=== PATIENT | male | born 1945 | race Caucasian/White ===

== ENCOUNTER 2017-09-05 09:51 | Emergency (ER) | payer OTHER ==
[~2017-09-05] VITALS: Ht 185.4 cm; Wt 86.2 kg
[~2017-09-05 09:51] MED LIST: ALBUAER3 IN; AMIO200T33 PO; ASPI81TA27 PO; ATOR20TA50 PO; BUSP5TAB51 PO; CARV6.25 PO; COMIH IN; ENAL5TAB92 PO; FLUT250M2 INH; FURO40TA4 PO; IPRIH IN; POT10T PO
[2017-09-05] MEDS ORDERED: IPRATROPIUM BROM 0.5 MG/2.5ML INH SOL NEB ONE (10:15)
[2017-09-05] MEDS ORDERED: ALBUTEROL SULF 2.5 MG/0.5ML(0.5%) NEB SOLN NEB ONE (10:15)
[2017-09-05 10:36] LABS: Basophils # (auto) 0.1 uL; Basophils % (auto) 1.1 % (0.0-2.0); Eosinophils # (auto) 0.2 uL; Eosinophils % (auto) 2.6 % (0.0-7.0); Hematocrit 42.9 % (41.0-53.0); Hemoglobin 14.5 g/dL (13.5-17.5); Lymphocytes % (auto) 11.5 % (10.0-50.0); Mean Corpuscular Hemoglobin 31.8 pg (28.0-32.0); Mean Corpuscular Hgb Conc. 33.9 g/dL (32.0-36.0); Mean Corpuscular Volume 93.8 fL (80.0-100.0); Mean Platelet Volume 7.5 fL (6.9-10.8); Monocytes # (auto) 0.8 uL; Monocytes % (auto) 9.3 % (0.0-12.0); Neutrophils # (auto) 6.5 uL; Neutrophils % (auto) 75.5 % (37.0-80.0); Platelet Count (auto) 249 10^3/uL (140-450); Red Cell Distribution Width 15.3 % (11.8-14.3); White Blood Cell 8.7 10^3/uL (4.4-10.8)
[2017-09-05 11:04] LABS: Albumin 3.7 g/dL (3.4-5.0); BUN/Creatinine Ratio 11.3; Bilirubin, Total 0.7 mg/dL (0.2-1.0); Calcium 8.6 mg/dL (8.5-10.1); Magnesium 2.5 mg/dL (1.6-2.6); Potassium 3.9 mmol/L (3.5-5.1); Total Protein 7.1 g/dL (6.4-8.2)
[2017-09-05 11:18] LABS: B-Type Natriuretic Peptide 28.05 pg/mL (0-100)
[2017-09-05 11:30] LABS: Temperature: 23.5 C (20.0-25.0)
[2017-09-05] MEDS ORDERED: FUROSEMIDE 40 MG/4 ML VIAL IV ONE (13:00)
[2017-09-05 13:12] VITALS: BP 151/105
[2017-09-05 14:01] LABS: Urine RBC None Seen /hpf (0 - 3)
[2017-09-05 14:10] LABS: Urine Bilirubin Negative (Negative); Urine Blood Negative /uL (Negative); Urine Color Yellow (Yellow); Urine Glucose Normal (Normal); Urine Hyaline Cast FEW /lpf (0 - 2); Urine Ketone Negative (Negative); Urine Nitrite Negative (Negative); Urine Urobilinogen Normal (Negative); Urine pH 5.5 (5.0-8.0)
== END 2017-09-05 14:54 | disposition home or self-care (01) ==
LOC: EDBD 09:51 → ER 09:51
DX: I50.9 Heart failure, unspecified (principal); J44.9 Chronic obstructive pulmonary disease, unspecified
CPT/HCPCS: 36415; 71010; 80053; 81001; 83735; 83880; 84484; 85025; 93005; 94640; 94761; 96374; 99285; J1940

== ENCOUNTER 2017-10-19 02:08 | Emergency (ER) | payer OTHER ==
[~2017-10-19] VITALS: Ht 180.3 cm; Wt 79.4 kg
[2017-10-19 03:08] LABS: Basophils # (auto) 0.1 uL; Basophils % (auto) 0.9 % (0.0-2.0); Eosinophils # (auto) 0.1 uL; Eosinophils % (auto) 1.4 % (0.0-7.0); Hematocrit 43.1 % (41.0-53.0); Hemoglobin 14.7 g/dL (13.5-17.5); Lymphocytes % (auto) 9.8 % (10.0-50.0); Mean Corpuscular Hemoglobin 32.5 pg (28.0-32.0); Mean Corpuscular Volume 95.6 fL (80.0-100.0); Monocytes # (auto) 0.8 uL; Monocytes % (auto) 7.9 % (0.0-12.0); Neutrophils # (auto) 8.1 uL; Nucleated Red Blood Cells % 0.1 %; Platelet Count (auto) 203 10^3/uL (140-450); Red Blood Cells 4.51 10^6/uL (4.5-5.90); Red Cell Distribution Width 15.3 % (11.8-14.3); White Blood Cell 10.2 10^3/uL (4.4-10.8)
[2017-10-19 03:17] LABS: INR 0.93 (0.9-1.15); Partial Thromboplastin Time 23.2 sec (22.64-33.71); Prothrombin Time 10.1 sec (9.37-12.3)
[2017-10-19 03:52] LABS: Alkaline Phosphatase 107 U/L (45-117); Anion Gap 6 (5-15); BUN/Creatinine Ratio 16.1; Blood Urea Nitrogen 36 mg/dL (7-18); Carbon Dioxide 31 mmol/L (21-32); Chloride 105 mmol/L (98-107); GFR African American 37 mL/min; GFR Non-African American 31 mL/min; Glucose 116 mg/dL (74-106); Potassium 3.7 mmol/L (3.5-5.1); Sodium 142 mmol/L (136-145)
[2017-10-19 03:53] LABS: Alanine Aminotransferase 20 U/L (16-61); Albumin 3.6 g/dL (3.4-5.0); Aspartate Aminotransferase 16 U/L (15-37); Bilirubin, Total 0.7 mg/dL (0.2-1.0); Calcium 8.5 mg/dL (8.5-10.1); Magnesium 2.5 mg/dL (1.6-2.6); Total Protein 6.9 g/dL (6.4-8.2)
[2017-10-19 04:54] LABS: Urine Bacteria NONE SEEN /hpf (None Seen); Urine Blood Negative /uL (Negative); Urine Mucus FEW (None Seen); Urine Specific Gravity 1.026 (1.001-1.035); Urine WBC 1 /hpf (0 - 3)
[2017-10-19] MEDS ORDERED: HYDROcodone-ACET 10/325MG TAB ONE (05:57)
[2017-10-19] MEDS ORDERED: HYDROcodone-ACET 10/325MG TAB PO ONE (06:00)
[2017-10-19 06:32] VITALS: BP 156/94
== END 2017-10-19 06:52 | disposition home or self-care (01) ==
LOC: EDBD 02:08 → ER 02:19
DX: J44.1 Chronic obstructive pulmonary disease with (acute) exacerbation (principal); N17.9 Acute kidney failure, unspecified; I50.9 Heart failure, unspecified; R73.9 Hyperglycemia, unspecified; Z99.81 Dependence on supplemental oxygen
CPT/HCPCS: 36415; 36600; 71045; 80053; 81001; 82805; 83735; 83880; 84484; 85025; 85379; 85610; 85730; 93005

== ENCOUNTER 2018-02-11 21:53 | Inpatient (IN) | payer OTHER ==
[~2018-02-11] VITALS: Ht 190.5 cm; Wt 56.8 kg
[~2018-02-11 21:53] MED LIST changes: -ASPI81TA27 PO; +BUSP10TA90 PO; -BUSP5TAB51 PO; -COMIH IN; -ENAL5TAB92 PO; -FLUT250M2 INH; -IPRIH IN; -POT10T PO
[2018-02-11] MEDS ORDERED: FUROSEMIDE 40 MG/4 ML VIAL IV ONE (22:15)
[2018-02-11] MEDS ORDERED: methylPREDNISolone SOD SUCC 125 MG/2 ML VL IV ONE (22:15)
[2018-02-11 22:37] LABS: Hemoglobin 13.7 g/dL (13.5-17.5); Mean Corpuscular Hemoglobin 32.3 pg (28.0-32.0); Mean Corpuscular Hgb Conc. 33.6 g/dL (32.0-36.0); White Blood Cell 10.5 10^3/uL (4.4-10.8)
[2018-02-11 22:44] LABS: Mean Corpuscular Volume 96.2 fL (80.0-100.0); Platelet Count (auto) 175 10^3/uL (140-450); Red Blood Cells 4.26 10^6/uL (4.5-5.90); Red Cell Distribution Width 15.1 % (11.8-14.3)
[2018-02-11 22:53] LABS: Band Neutrophils % (manual) 0; Basophils % (manual) 0 (0.0-2.0); Blast Cells 0; Eosinophils % (manual) 0 (0-7); Metamyelocytes % 0; Myelocytes % 0; Promyelocytes % 0; Reactive Lymphocytes 0
[2018-02-11 22:55] LABS: Albumin 3.1 g/dL (3.4-5.0); BUN/Creatinine Ratio 21.1; Calcium 8.2 mg/dL (8.5-10.1); Potassium 4.1 mmol/L (3.5-5.1)
[2018-02-11 23:00] LABS: Bilirubin, Total 0.8 mg/dL (0.2-1.0); Total Protein 6.3 g/dL (6.4-8.2)
[2018-02-11 23:23] LABS: Lymphocytes % (manual) 3 (10.0-50.0); Monocytes % (manual) 4 (0-12)
[2018-02-12] MEDS ORDERED: IBUPROFEN 800 MG TAB PO ONE (02:00)
[2018-02-12] MEDS ORDERED: TEMAZEPAM 15 MG CAP PO PRN (02:15)
[2018-02-12] MEDS ORDERED: ONDANSETRON HCL 4 MG/2 ML VIAL IV PRN (02:15)
[2018-02-12] MEDS ORDERED: ACETAMINOPHEN 500 MG TAB PO PRN (02:15)
[2018-02-12 03:14] VITALS: BP 110/73
[2018-02-12] MEDS ORDERED: FUROSEMIDE 20 MG TAB PO SCH (06:00)
[2018-02-12] MEDS: ALBUTEROL SULF 2.5 MG/0.5ML(0.5%) NEB SOLN NEB SCH ×3 (06:50→19:16)
[2018-02-12] MEDS: IPRATROPIUM BROM 0.5 MG/2.5ML INH SOL NEB SCH ×3 (06:50→19:16)
[2018-02-12 07:16] LABS: Urine Bacteria FEW /hpf (None Seen); Urine Blood Negative /uL (Negative); Urine Mucus FEW (None Seen); Urine Specific Gravity 1.023 (1.001-1.035); Urine WBC 2 /hpf (0 - 3)
[2018-02-12] MEDS: CARVEDILOL 3.125 MG TAB PO SCH ×2 (09:52→21:36)
[2018-02-12] MEDS: busPIRone HCL 10 MG TAB PO SCH ×2 (09:52→21:33)
[2018-02-12] MEDS: AMIODARONE HCL 200 MG TAB PO SCH (09:52)
[2018-02-12] MEDS: HYDROcodone-ACET 5/325MG TAB PO PRN (12:41)
[2018-02-12 12:45] LABS: Basophils # (auto) 0.1 uL; Basophils % (auto) 0.9 % (0.0-2.0); Eosinophils # (auto) 0 uL; Hematocrit 38.1 % (41.0-53.0); Hemoglobin 12.6 g/dL (13.5-17.5); Lymphocytes # (auto) 0.3 uL; Lymphocytes % (auto) 2.3 % (10.0-50.0); Mean Corpuscular Hemoglobin 31.5 pg (28.0-32.0); Mean Corpuscular Hgb Conc. 32.9 g/dL (32.0-36.0); Mean Corpuscular Volume 95.6 fL (80.0-100.0); Monocytes # (auto) 0.2 uL; Monocytes % (auto) 1.5 % (0.0-12.0); Neutrophils # (auto) 12.3 uL; Neutrophils % (auto) 95.3 % (37.0-80.0); Platelet Count (auto) 159 10^3/uL (140-450); Red Blood Cells 3.99 10^6/uL (4.5-5.90); Red Cell Distribution Width 14.6 % (11.8-14.3); White Blood Cell 12.9 10^3/uL (4.4-10.8)
[2018-02-12 13:05] VITALS: BP 119/79
[2018-02-12 13:05] LABS: BUN/Creatinine Ratio 20.8; Potassium 3.8 mmol/L (3.5-5.1)
[2018-02-12 17:00] VITALS: BP 132/82
[2018-02-12] MEDS: methylPREDNISolone SOD SUCC 40 MG/ML VL IV SCH ×2 (17:32→21:33)
[2018-02-12 22:00] VITALS: BP 116/68
[2018-02-13] MEDS: ALBUTEROL SULF 2.5 MG/0.5ML(0.5%) NEB SOLN NEB SCH ×5 (00:17→23:39)
[2018-02-13] MEDS: IPRATROPIUM BROM 0.5 MG/2.5ML INH SOL NEB SCH ×5 (00:17→23:39)
[2018-02-13] MEDS: methylPREDNISolone SOD SUCC 40 MG/ML VL IV SCH ×3 (04:49→21:46)
[2018-02-13] MEDS: HYDROcodone-ACET 5/325MG TAB PO PRN (04:50)
[2018-02-13 05:00] VITALS: BP 132/93
[2018-02-13 06:55] LABS: Basophils # (auto) 0.1 uL; Basophils % (auto) 0.3 % (0.0-2.0); Eosinophils # (auto) 0 uL; Hematocrit 39.3 % (41.0-53.0); Hemoglobin 13.3 g/dL (13.5-17.5); Lymphocytes # (auto) 0.3 uL; Lymphocytes % (auto) 1.8 % (10.0-50.0); Mean Corpuscular Hemoglobin 32.2 pg (28.0-32.0); Mean Corpuscular Hgb Conc. 33.8 g/dL (32.0-36.0); Mean Corpuscular Volume 95.4 fL (80.0-100.0); Monocytes # (auto) 0.3 uL; Monocytes % (auto) 1.7 % (0.0-12.0); Neutrophils # (auto) 16.7 uL; Neutrophils % (auto) 96.2 % (37.0-80.0); Platelet Count (auto) 154 10^3/uL (140-450); Red Blood Cells 4.11 10^6/uL (4.5-5.90); Red Cell Distribution Width 14.7 % (11.8-14.3); White Blood Cell 17.4 10^3/uL (4.4-10.8)
[2018-02-13 06:59] LABS: BUN/Creatinine Ratio 20.4; Calcium 8.1 mg/dL (8.5-10.1); Magnesium 2.5 mg/dL (1.6-2.6); Potassium 4.1 mmol/L (3.5-5.1)
[2018-02-13 09:00] VITALS: BP 126/86
[2018-02-13] MEDS: CARVEDILOL 3.125 MG TAB PO SCH ×2 (09:51→21:46)
[2018-02-13] MEDS: AMIODARONE HCL 200 MG TAB PO SCH (09:51)
[2018-02-13] MEDS: busPIRone HCL 10 MG TAB PO SCH ×2 (09:51→21:46)
[2018-02-13 13:17] VITALS: BP 121/88
[2018-02-13] MEDS: DOXYCYCLINE 100 MG TAB/CAP PO SCH ×2 (13:52→21:46)
[2018-02-13 17:13] VITALS: BP 134/95
[2018-02-13] MEDS: CYANOCOBALAMIN (B-12) 1000 MCG/1 ML VIAL SUBCUT SCH (18:18)
[2018-02-13 21:30] VITALS: BP 129/83
[2018-02-14 05:00] VITALS: BP 109/71
[2018-02-14] MEDS: methylPREDNISolone SOD SUCC 40 MG/ML VL IV SCH ×2 (05:36→13:58)
[2018-02-14] MEDS: IPRATROPIUM BROM 0.5 MG/2.5ML INH SOL NEB SCH ×2 (06:11→11:27)
[2018-02-14] MEDS: ALBUTEROL SULF 2.5 MG/0.5ML(0.5%) NEB SOLN NEB SCH ×2 (06:11→11:27)
[2018-02-14 09:00] VITALS: BP 129/87
[2018-02-14] MEDS: CYANOCOBALAMIN (B-12) 1000 MCG/1 ML VIAL SUBCUT SCH (11:38)
[2018-02-14] MEDS: CARVEDILOL 3.125 MG TAB PO SCH (11:42)
[2018-02-14] MEDS: busPIRone HCL 10 MG TAB PO SCH (11:42)
[2018-02-14] MEDS: DOXYCYCLINE 100 MG TAB/CAP PO SCH (11:43)
[2018-02-14 13:00] VITALS: BP 131/82
[2018-02-14] MEDS ORDERED: MULTIPLE VITAMINS W/ MINERALS TAB PO SCH (15:37)
[2018-02-14 16:57] VITALS: BP 141/93
[2018-02-14 17:00] VITALS: BP 141/93
[2018-02-14 17:50] VITALS: BP 141/93
[2018-02-14] MEDS ORDERED: BOOST PLUS 8 ounce PO SCH (18:00)
[2018-02-14] MEDS ORDERED: ASCORBIC ACID 500 MG TAB PO SCH (22:00)
[2018-03-25] MEDS ORDERED: GLIP-115 PO (11:49)
[2018-03-25] MEDS ORDERED: CEL100T PO (11:51)
[2018-03-29] MEDS ORDERED: FURO20TA PO (12:13)
== END 2018-02-14 17:50 | DRG 682 ==
LOC: EDBD 21:53 → ER 21:54 → TELE 21:55 → TELE-EAST 02-12 13:15
PROVIDERS: ADMIT Nurse Practitioner Family; ATTEND Internal Medicine
DX: N17.0 Acute kidney failure with tubular necrosis (principal); J96.00 Acute respiratory failure, unspecified whether with hypoxia or hypercapnia; I48.91 Unspecified atrial fibrillation; J44.0 Chronic obstructive pulmonary disease with (acute) lower respiratory infection; I13.0 Hypertensive heart and chronic kidney disease with heart failure and stage 1 through stage 4 chronic kidney disease, or unspecified chronic kidney disease; I50.9 Heart failure, unspecified; I48.92 Unspecified atrial flutter; J45.901 Unspecified asthma with (acute) exacerbation; J44.1 Chronic obstructive pulmonary disease with (acute) exacerbation; N18.4 Chronic kidney disease, stage 4 (severe); W18.39XA Other fall on same level, initial encounter; J20.9 Acute bronchitis, unspecified; R29.6 Repeated falls; R73.9 Hyperglycemia, unspecified; E78.5 Hyperlipidemia, unspecified; E53.8 Deficiency of other specified B group vitamins; F41.9 Anxiety disorder, unspecified; I25.2 Old myocardial infarction; Z81.8 Family history of other mental and behavioral disorders; Z82.3 Family history of stroke; Z82.49 Family history of ischemic heart disease and other diseases of the circulatory system; Z82.5 Family history of asthma and other chronic lower respiratory diseases; Z82.62 Family history of osteoporosis; Z99.81 Dependence on supplemental oxygen; Z79.899 Other long term (current) drug therapy; Y93.89 Activity, other specified; Y92.89 Other specified places as the place of occurrence of the external cause; Y99.8 Other external cause status
CPT/HCPCS: 36415; 36600; 70450; 71045; 73630; 80048; 80053; 81001; 82607; 82805; 83605; 83735; 83880; 84484; 85007; 85025; 85027; 87040; 87081; 93005; 93306; 93886; 94640; 94761; 96374; 96375; 97116

== ENCOUNTER 2018-02-16 16:27 | Inpatient (IN) | payer OTHER ==
[~2018-02-16] VITALS: Ht 185.4 cm; Wt 77.6 kg
[2018-02-16] MEDS ORDERED: IPRATROPIUM BROM 0.5 MG/2.5ML INH SOL NEB ONE (20:00)
[2018-02-16] MEDS ORDERED: ALBUTEROL SULF 2.5 MG/0.5ML(0.5%) NEB SOLN NEB ONE (20:00)
[2018-02-16] MEDS ORDERED: cefTRIAXone 1GM/10ml IVPUSH 10 ML IV ONE (20:15)
[2018-02-16] MEDS ORDERED: methylPREDNISolone SOD SUCC 125 MG/2 ML VL IV ONE (20:15)
[2018-02-16 20:43] LABS: Basophils # (auto) 0.1 uL; Eosinophils # (auto) 0.2 uL; Eosinophils % (auto) 1.6 % (0.0-7.0); Hematocrit 40.8 % (41.0-53.0); Hemoglobin 13.7 g/dL (13.5-17.5); Lymphocytes # (auto) 0.6 uL; Lymphocytes % (auto) 5.8 % (10.0-50.0); Mean Corpuscular Hemoglobin 32.1 pg (28.0-32.0); Mean Corpuscular Hgb Conc. 33.6 g/dL (32.0-36.0); Mean Corpuscular Volume 95.5 fL (80.0-100.0); Monocytes # (auto) 0.6 uL; Monocytes % (auto) 6.3 % (0.0-12.0); Neutrophils # (auto) 8.6 uL; Neutrophils % (auto) 85.3 % (37.0-80.0); Platelet Count (auto) 142 10^3/uL (140-450); Red Blood Cells 4.27 10^6/uL (4.5-5.90)
[2018-02-16 20:59] LABS: Albumin 2.8 g/dL (3.4-5.0); Calcium 8.4 mg/dL (8.5-10.1); Potassium 3.9 mmol/L (3.5-5.1)
[2018-02-16 21:01] LABS: BUN/Creatinine Ratio 23.9
[2018-02-16 21:05] LABS: Bilirubin, Total 0.8 mg/dL (0.2-1.0); Total Protein 5.9 g/dL (6.4-8.2)
[2018-02-16] MEDS ORDERED: NITROGLYCERIN 0.4 MG SL TAB SL PRN (21:15)
[2018-02-16] MEDS ORDERED: MORPHINE SULFATE 4 MG/ML SYR/VIAL IV PRN (21:15)
[2018-02-16] MEDS ORDERED: ONDANSETRON HCL 4 MG/2 ML VIAL IV PRN (21:15)
[2018-02-16] MEDS ORDERED: HYDROcodone-ACET 5/325MG TAB PO PRN (21:15)
[2018-02-16] MEDS ORDERED: ACETAMINOPHEN 325 MG TAB PO PRN (21:15)
[2018-02-16 21:41] VITALS: BP 135/97
[2018-02-16] MEDS: CARVEDILOL 3.125 MG TAB PO SCH (22:04)
[2018-02-16] MEDS: ATORVASTATIN 20 MG TAB PO SCH (22:04)
[2018-02-16] MEDS: busPIRone HCL 10 MG TAB PO SCH (22:05)
[2018-02-16] MEDS: IPRATROPIUM BROM 0.5 MG/2.5ML INH SOL NEB PRN (22:42)
[2018-02-16] MEDS: ALBUTEROL SULF 2.5 MG/0.5ML(0.5%) NEB SOLN NEB PRN (22:42)
[2018-02-16 23:41] VITALS: BP 147/96
[2018-02-17] MEDS ORDERED: POTA10TA51 PO (00:39)
[2018-02-17] MEDS ORDERED: BUSP10TA90 PO (00:39)
[2018-02-17] MEDS ORDERED: AMLO5TAB2 PO (00:39)
[2018-02-17] MEDS ORDERED: CAR3125T PO (00:39)
[2018-02-17] MEDS ORDERED: FURO20TA PO (00:39)
[2018-02-17] MEDS ORDERED: PRED1PAK7 PO (00:39)
[2018-02-17] MEDS: ALBUTEROL SULF 2.5 MG/0.5ML(0.5%) NEB SOLN NEB PRN ×3 (03:02→11:05)
[2018-02-17] MEDS: IPRATROPIUM BROM 0.5 MG/2.5ML INH SOL NEB PRN ×3 (03:02→11:05)
[2018-02-17 05:00] VITALS: BP 140/95
[2018-02-17] MEDS: FUROSEMIDE 20 MG TAB PO SCH ×2 (06:20→17:49)
[2018-02-17 06:33] LABS: Basophils # (auto) 0 uL; Basophils % (auto) 0.1 % (0.0-2.0); Eosinophils # (auto) 0 uL; Hematocrit 36.9 % (41.0-53.0); Hemoglobin 12.5 g/dL (13.5-17.5); Lymphocytes # (auto) 0.2 uL; Lymphocytes % (auto) 2.3 % (10.0-50.0); Mean Corpuscular Hemoglobin 32.2 pg (28.0-32.0); Mean Corpuscular Hgb Conc. 33.9 g/dL (32.0-36.0); Mean Corpuscular Volume 94.9 fL (80.0-100.0); Monocytes # (auto) 0.1 uL; Neutrophils # (auto) 8.7 uL; Neutrophils % (auto) 96.6 % (37.0-80.0); Nucleated Red Blood Cells % 0.1 %; Platelet Count (auto) 140 10^3/uL (140-450); Red Blood Cells 3.89 10^6/uL (4.5-5.90); Red Cell Distribution Width 14.9 % (11.8-14.3)
[2018-02-17 07:15] LABS: Albumin 2.4 g/dL (3.4-5.0); BUN/Creatinine Ratio 23.2; Bilirubin, Total 0.3 mg/dL (0.2-1.0); Calcium 8.3 mg/dL (8.5-10.1); Total Protein 5.3 g/dL (6.4-8.2)
[2018-02-17 07:36] LABS: Potassium 4.2 mmol/L (3.5-5.1)
[2018-02-17 08:00] VITALS: BP 142/99
[2018-02-17 09:00] VITALS: BP 142/99
[2018-02-17] MEDS: cefTRIAXone 1GM/10ml IVPUSH 10 ML IV SCH (10:18)
[2018-02-17] MEDS: busPIRone HCL 10 MG TAB PO SCH ×2 (10:19→21:45)
[2018-02-17] MEDS: ENOXAPARIN SOD 40 MG/0.4 ML SYRINGE SC SCH (10:19)
[2018-02-17] MEDS: PANTOPRAZOLE 40 MG TAB PO SCH (10:19)
[2018-02-17] MEDS: AMIODARONE HCL 200 MG TAB PO SCH (10:19)
[2018-02-17] MEDS: CARVEDILOL 3.125 MG TAB PO SCH ×2 (11:06→21:45)
[2018-02-17 13:00] VITALS: BP 119/86
[2018-02-17 17:00] VITALS: BP 140/82
[2018-02-17] MEDS ORDERED: ACETYLCYSTEINE 10 %(100MG/ML) SOL 4ML NEB SCH (18:00)
[2018-02-17] MEDS: ACETYLCYSTEINE 10 %(100MG/ML) SOL 4ML NEB SCH (18:45)
[2018-02-17] MEDS: IPRATROPIUM BROM 0.5 MG/2.5ML INH SOL NEB SCH (18:46)
[2018-02-17] MEDS: ALBUTEROL SULF 2.5 MG/0.5ML(0.5%) NEB SOLN NEB SCH (18:46)
[2018-02-17] MEDS: BOOST PLUS 8 ounce PO SCH (19:48)
[2018-02-17] MEDS: TEMAZEPAM 15 MG CAP PO PRN (21:44)
[2018-02-17] MEDS: ATORVASTATIN 20 MG TAB PO SCH (21:45)
[2018-02-17 22:53] VITALS: BP 116/68
[2018-02-18] MEDS: ALBUTEROL SULF 2.5 MG/0.5ML(0.5%) NEB SOLN NEB SCH ×5 (00:03→21:12)
[2018-02-18] MEDS: IPRATROPIUM BROM 0.5 MG/2.5ML INH SOL NEB SCH ×5 (00:03→21:12)
[2018-02-18] MEDS: ACETYLCYSTEINE 10 %(100MG/ML) SOL 4ML NEB SCH ×4 (00:04→21:13)
[2018-02-18] MEDS: FUROSEMIDE 20 MG TAB PO SCH ×2 (05:33→17:57)
[2018-02-18 05:50] VITALS: BP 128/85
[2018-02-18 08:00] VITALS: BP 135/75
[2018-02-18 09:00] VITALS: BP 135/75
[2018-02-18] MEDS: cefTRIAXone 1GM/10ml IVPUSH 10 ML IV SCH (09:02)
[2018-02-18] MEDS: BOOST PLUS 8 ounce PO SCH ×2 (09:03→17:57)
[2018-02-18] MEDS: busPIRone HCL 10 MG TAB PO SCH ×2 (09:39→21:36)
[2018-02-18] MEDS: AMIODARONE HCL 200 MG TAB PO SCH (09:39)
[2018-02-18] MEDS: PANTOPRAZOLE 40 MG TAB PO SCH (09:39)
[2018-02-18] MEDS: CARVEDILOL 3.125 MG TAB PO SCH ×2 (09:40→21:36)
[2018-02-18] MEDS: ENOXAPARIN SOD 40 MG/0.4 ML SYRINGE SC SCH (09:40)
[2018-02-18 13:00] VITALS: BP 117/65
[2018-02-18 16:59] VITALS: BP 114/79
[2018-02-18] MEDS ORDERED: LIDOCAINE 5% TOPICAL PATCH TOP ONE (17:45)
[2018-02-18] MEDS: SODIUM CHLORIDE 0.9% 1,000 ML IV SCH (17:58)
[2018-02-18] MEDS: ATORVASTATIN 20 MG TAB PO SCH (21:35)
[2018-02-18] MEDS: CELECOXIB 100 MG CAP PO SCH (21:35)
[2018-02-18 23:53] VITALS: BP 132/81
[2018-02-19] VITALS (7 sets, daily range): BP systolic 119–143; BP diastolic 61–87
[2018-02-19] MEDS: ACETYLCYSTEINE 10 %(100MG/ML) SOL 4ML NEB SCH ×4 (00:15→18:20)
[2018-02-19] MEDS: ALBUTEROL SULF 2.5 MG/0.5ML(0.5%) NEB SOLN NEB SCH ×4 (00:15→18:20)
[2018-02-19] MEDS: IPRATROPIUM BROM 0.5 MG/2.5ML INH SOL NEB SCH ×4 (00:15→18:20)
[2018-02-19] MEDS: TEMAZEPAM 15 MG CAP PO PRN (01:09)
[2018-02-19] MEDS: FUROSEMIDE 20 MG TAB PO SCH ×2 (05:24→18:34)
[2018-02-19 07:19] LABS: Hemoglobin 13.5 g/dL (13.5-17.5); Mean Corpuscular Hemoglobin 32.3 pg (28.0-32.0); Mean Corpuscular Hgb Conc. 33.7 g/dL (32.0-36.0); Platelet Count (auto) 143 10^3/uL (140-450); Red Blood Cells 4.17 10^6/uL (4.5-5.90); Red Cell Distribution Width 15.2 % (11.8-14.3); White Blood Cell 8.3 10^3/uL (4.4-10.8)
[2018-02-19 07:26] LABS: BUN/Creatinine Ratio 27.4; Potassium 3.5 mmol/L (3.5-5.1)
[2018-02-19 07:47] LABS: Band Neutrophils % (manual) 0; Basophils % (manual) 0 (0.0-2.0); Blast Cells 0; Metamyelocytes % 0; Myelocytes % 0; Promyelocytes % 0; Reactive Lymphocytes 0
[2018-02-19] MEDS: SODIUM CHLORIDE 0.9% 1,000 ML IV SCH (09:25)
[2018-02-19] MEDS: cefTRIAXone 1GM/10ml IVPUSH 10 ML IV SCH (10:34)
[2018-02-19] MEDS: CARVEDILOL 3.125 MG TAB PO SCH ×2 (10:35→21:31)
[2018-02-19] MEDS: CELECOXIB 100 MG CAP PO SCH ×2 (10:36→21:28)
[2018-02-19] MEDS: PANTOPRAZOLE 40 MG TAB PO SCH (10:36)
[2018-02-19] MEDS: BOOST PLUS 8 ounce PO SCH ×2 (10:36→18:34)
[2018-02-19] MEDS: AMIODARONE HCL 200 MG TAB PO SCH (10:36)
[2018-02-19] MEDS: busPIRone HCL 10 MG TAB PO SCH ×2 (10:36→21:32)
[2018-02-19] MEDS: ENOXAPARIN SOD 40 MG/0.4 ML SYRINGE SC SCH (10:37)
[2018-02-19 14:16] LABS: Eosinophils % (manual) 2 (0-7); Lymphocytes % (manual) 10 (10.0-50.0); Monocytes % (manual) 6 (0-12)
[2018-02-19] MEDS: LIDOCAINE 5% TOPICAL PATCH TOP SCH (15:47)
[2018-02-19] MEDS: ATORVASTATIN 20 MG TAB PO SCH (21:28)
[2018-02-19] MEDS: methylPREDNISolone SOD SUCC 40 MG/ML VL IV SCH (21:32)
[2018-02-19] MEDS ORDERED: ENOXAPARIN SOD 40 MG/0.4 ML SYRINGE SC SCH (22:00)
[2018-02-20] MEDS: ALBUTEROL SULF 2.5 MG/0.5ML(0.5%) NEB SOLN NEB SCH ×4 (00:14→18:37)
[2018-02-20] MEDS: IPRATROPIUM BROM 0.5 MG/2.5ML INH SOL NEB SCH ×4 (00:14→18:37)
[2018-02-20] MEDS: ACETYLCYSTEINE 10 %(100MG/ML) SOL 4ML NEB SCH ×4 (00:14→18:37)
[2018-02-20] MEDS: TEMAZEPAM 15 MG CAP PO PRN (00:29)
[2018-02-20] MEDS: SODIUM CHLORIDE 0.9% 1,000 ML IV SCH (02:05)
[2018-02-20 05:00] VITALS: BP 127/86
[2018-02-20 05:57] LABS: BUN/Creatinine Ratio 22.7; Calcium 8.1 mg/dL (8.5-10.1); Potassium 3.9 mmol/L (3.5-5.1)
[2018-02-20] MEDS: FUROSEMIDE 20 MG TAB PO SCH ×2 (06:38→17:35)
[2018-02-20 08:00] VITALS: BP 145/94
[2018-02-20 08:22] VITALS: BP 145/94
[2018-02-20] MEDS: BOOST PLUS 8 ounce PO SCH ×2 (09:25→18:00)
[2018-02-20] MEDS: cefTRIAXone 1GM/10ml IVPUSH 10 ML IV SCH (09:25)
[2018-02-20] MEDS: CELECOXIB 100 MG CAP PO SCH ×2 (09:28→22:26)
[2018-02-20] MEDS: busPIRone HCL 10 MG TAB PO SCH ×2 (09:28→22:26)
[2018-02-20] MEDS: AMIODARONE HCL 200 MG TAB PO SCH (09:29)
[2018-02-20] MEDS: PANTOPRAZOLE 40 MG TAB PO SCH (09:29)
[2018-02-20] MEDS: ENOXAPARIN SOD 80 MG/0.8ML SYRINGE SC SCH ×2 (09:30→22:30)
[2018-02-20] MEDS: CARVEDILOL 3.125 MG TAB PO SCH ×2 (09:30→22:26)
[2018-02-20] MEDS: methylPREDNISolone SOD SUCC 40 MG/ML VL IV SCH ×2 (09:31→22:28)
[2018-02-20] MEDS: LIDOCAINE 5% TOPICAL PATCH TOP SCH (09:33)
[2018-02-20 12:29] VITALS: BP 139/97
[2018-02-20] MEDS ORDERED: TEMA15CA91 PO (15:32)
[2018-02-20] MEDS ORDERED: LIDO5DIS21 TOP (15:35)
[2018-02-20] MEDS ORDERED: APIX2.5T PO (15:35)
[2018-02-20] MEDS ORDERED: BUSP10TA90 PO (15:35)
[2018-02-20] MEDS ORDERED: IPR002IS NEB (15:35)
[2018-02-20] MEDS ORDERED: CAR3125T PO (15:35)
[2018-02-20] MEDS ORDERED: NUTR-340 PO (15:35)
[2018-02-20] MEDS ORDERED: TROL10LO EX (15:35)
[2018-02-20] MEDS ORDERED: ALB5IS NEB (15:35)
[2018-02-20] MEDS ORDERED: CEL100T PO (15:35)
[2018-02-20 16:39] VITALS: BP 131/95
[2018-02-20 22:00] VITALS: BP 129/94
[2018-02-20] MEDS: ATORVASTATIN 20 MG TAB PO SCH (22:27)
[2018-02-21] MEDS: IPRATROPIUM BROM 0.5 MG/2.5ML INH SOL NEB SCH ×4 (00:15→18:21)
[2018-02-21] MEDS: ACETYLCYSTEINE 10 %(100MG/ML) SOL 4ML NEB SCH ×4 (00:15→18:21)
[2018-02-21] MEDS: ALBUTEROL SULF 2.5 MG/0.5ML(0.5%) NEB SOLN NEB SCH ×4 (00:15→18:21)
[2018-02-21 06:00] VITALS: BP 167/111
[2018-02-21] MEDS: FUROSEMIDE 20 MG TAB PO SCH (06:25)
[2018-02-21 08:00] VITALS: BP 160/117
[2018-02-21] MEDS: BOOST PLUS 8 ounce PO SCH (08:00)
[2018-02-21] MEDS: cefTRIAXone 1GM/10ml IVPUSH 10 ML IV SCH (09:16)
[2018-02-21 12:35] VITALS: BP 153/96
[2018-02-21 16:39] VITALS: BP 147/107
[2018-02-21 16:54] VITALS: BP 147/65
[2018-03-25] MEDS ORDERED: GLIP-115 PO (11:49)
[2018-03-25] MEDS ORDERED: CEL100T PO (11:51)
[2018-03-29] MEDS ORDERED: FURO20TA PO (12:13)
== END 2018-02-21 18:45 | disposition home or self-care (01) | DRG 682 ==
LOC: EDBD 16:27 → ER 16:27 → TELE 16:28 → TELE-CENTR 22:53
PROVIDERS: ADMIT Nurse Practitioner; ATTEND Hospitalist
DX: N17.9 Acute kidney failure, unspecified (principal); J96.21 Acute and chronic respiratory failure with hypoxia; I26.99 Other pulmonary embolism without acute cor pulmonale; I50.9 Heart failure, unspecified; I48.2 Chronic atrial fibrillation; Z99.81 Dependence on supplemental oxygen; L89.323 Pressure ulcer of left buttock, stage 3; J96.22 Acute and chronic respiratory failure with hypercapnia; J44.0 Chronic obstructive pulmonary disease with (acute) lower respiratory infection; J44.1 Chronic obstructive pulmonary disease with (acute) exacerbation; F41.9 Anxiety disorder, unspecified; M79.1 Myalgia; N18.3 Chronic kidney disease, stage 3 (moderate); J20.9 Acute bronchitis, unspecified; Z81.8 Family history of other mental and behavioral disorders; Z82.3 Family history of stroke; Z82.49 Family history of ischemic heart disease and other diseases of the circulatory system; Z82.5 Family history of asthma and other chronic lower respiratory diseases; Z82.62 Family history of osteoporosis
CPT/HCPCS: 36415; 36600; 71045; 80048; 80053; 82805; 83880; 84484; 85007; 85025; 85027; 85379; 87081; 93005; 93970; 94640; 96374; 96375; 97116

== ENCOUNTER 2018-03-18 16:24 | Inpatient (IN) | payer OTHER ==
[~2018-03-18] VITALS: Ht 185.4 cm; Wt 77.6 kg
[~2018-03-18 16:24] MED LIST changes: +ALB5IS NEB; -AMIO200T33 PO; +AMLO5TAB2 PO; +APIX2.5T PO; -ATOR20TA50 PO; +CAR3125T PO; -CARV6.25 PO; +CEL100T PO; +FURO20TA PO; -FURO40TA4 PO; +IPR002IS NEB; +LIDO5DIS21 TOP; +NUTR-340 PO; +POTA10TA51 PO; +PRED1PAK7 PO; +TEMA15CA91 PO; +TROL10LO EX
[2018-03-18] MEDS ORDERED: FUROSEMIDE 40 MG/4 ML VIAL IV ONE (17:30)
[2018-03-18 17:40] LABS: Hematocrit 34.1 % (41.0-53.0); Hemoglobin 11.3 g/dL (13.5-17.5); Mean Corpuscular Hemoglobin 32.1 pg (28.0-32.0); Mean Corpuscular Hgb Conc. 33.1 g/dL (32.0-36.0); Platelet Count (auto) 391 10^3/uL (140-450); Red Blood Cells 3.52 10^6/uL (4.5-5.90); Red Cell Distribution Width 17.2 % (11.8-14.3); White Blood Cell 10.9 10^3/uL (4.4-10.8)
[2018-03-18 17:50] LABS: Band Neutrophils % (manual) 0; Basophils % (manual) 0 (0.0-2.0); Blast Cells 0; Promyelocytes % 0; Reactive Lymphocytes 0
[2018-03-18 18:03] LABS: Albumin 2.3 g/dL (3.4-5.0); BUN/Creatinine Ratio 23.4; Bilirubin, Total 0.4 mg/dL (0.2-1.0); Calcium 8.9 mg/dL (8.5-10.1); Potassium 4.7 mmol/L (3.5-5.1); Total Protein 6.7 g/dL (6.4-8.2)
[2018-03-18 18:04] LABS: Eosinophils % (manual) 1 (0-7); Lymphocytes % (manual) 11 (10.0-50.0); Metamyelocytes % 4; Monocytes % (manual) 8 (0-12); Myelocytes % 1
[2018-03-18 18:58] LABS: Urine Bacteria NONE SEEN /hpf (None Seen); Urine Blood 3+ /uL (Negative); Urine Mucus FEW (None Seen); Urine Specific Gravity 1.018 (1.001-1.035); Urine WBC 711 /hpf (0 - 3); Urine WBC Clumps PRESENT /hpf (None Seen)
[2018-03-18] MEDS ORDERED: IPRATROPIUM BROM 0.5 MG/2.5ML INH SOL NEB ONE (23:30)
[2018-03-18] MEDS ORDERED: ALBUTEROL SULF 2.5 MG/0.5ML(0.5%) NEB SOLN NEB ONE (23:30)
[2018-03-19] VITALS (8 sets, daily range): BP systolic 100–143; BP diastolic 69–87
[2018-03-19] MEDS ORDERED: ALBUTEROL SULF 2.5 MG/0.5ML(0.5%) NEB SOLN NEB PRN (00:15)
[2018-03-19] MEDS ORDERED: ONDANSETRON HCL 4 MG/2 ML VIAL IV PRN (00:15)
[2018-03-19] MEDS ORDERED: ACETAMINOPHEN 500 MG TAB PO PRN (00:15)
[2018-03-19] MEDS ORDERED: HYDROcodone-ACET 5/325MG TAB PO PRN (00:15)
[2018-03-19] MEDS ORDERED: cefTRIAXone 1GM/10ml IVPUSH 10 ML IV ONE (00:15)
[2018-03-19] MEDS ORDERED: LACTULOSE 20Gm/30ML SOLN PO PRN (01:00)
[2018-03-19] MEDS: DOXYCYCLINE 100MG/250ML 250 ML IV SCH ×2 (01:27→13:41)
[2018-03-19] MEDS: ALBUTEROL SULF 2.5 MG/0.5ML(0.5%) NEB SOLN NEB SCH ×3 (06:49→20:16)
[2018-03-19] MEDS: IPRATROPIUM BROM 0.5 MG/2.5ML INH SOL NEB SCH ×3 (06:50→20:16)
[2018-03-19] MEDS: busPIRone HCL 10 MG TAB PO SCH ×2 (10:46→22:08)
[2018-03-19] MEDS: CARVEDILOL 3.125 MG TAB PO SCH ×2 (10:47→22:00)
[2018-03-19] MEDS: ENOXAPARIN SOD 30 MG/0.3 ML SYRINGE SC SCH (13:40)
[2018-03-19] MEDS: ATORVASTATIN 20 MG TAB PO SCH (22:08)
[2018-03-19] MEDS: cefTRIAXone 1GM/10ml IVPUSH 10 ML IV SCH (23:54)
[2018-03-19] MEDS: LORazepam 2MG/ML-1ML VIAL IV PRN (23:55)
[2018-03-20] MEDS: IPRATROPIUM BROM 0.5 MG/2.5ML INH SOL NEB SCH ×4 (00:26→18:24)
[2018-03-20] MEDS: ALBUTEROL SULF 2.5 MG/0.5ML(0.5%) NEB SOLN NEB SCH ×4 (00:26→18:25)
[2018-03-20] MEDS: DOXYCYCLINE 100MG/250ML 250 ML IV SCH ×2 (01:17→14:23)
[2018-03-20 05:27] VITALS: BP 116/73
[2018-03-20 06:13] LABS: Hematocrit 33.1 % (41.0-53.0); Hemoglobin 11.1 g/dL (13.5-17.5); Mean Corpuscular Hemoglobin 31.9 pg (28.0-32.0); Mean Corpuscular Hgb Conc. 33.4 g/dL (32.0-36.0); Mean Corpuscular Volume 95.4 fL (80.0-100.0); Platelet Count (auto) 392 10^3/uL (140-450); Red Blood Cells 3.47 10^6/uL (4.5-5.90); Red Cell Distribution Width 16.6 % (11.8-14.3); White Blood Cell 8.2 10^3/uL (4.4-10.8)
[2018-03-20 06:17] LABS: Basophils % (manual) 0 (0.0-2.0); Blast Cells 0; Myelocytes % 0; Promyelocytes % 0; Reactive Lymphocytes 0
[2018-03-20 06:32] LABS: BUN/Creatinine Ratio 29.2; Calcium 8.4 mg/dL (8.5-10.1); Potassium 3.9 mmol/L (3.5-5.1)
[2018-03-20 08:41] LABS: Band Neutrophils % (manual) 2; Eosinophils % (manual) 1 (0-7); Lymphocytes % (manual) 13 (10.0-50.0); Metamyelocytes % 5; Monocytes % (manual) 8 (0-12)
[2018-03-20 09:25] VITALS: BP 111/73
[2018-03-20] MEDS: busPIRone HCL 10 MG TAB PO SCH ×2 (10:01→22:07)
[2018-03-20] MEDS: ENOXAPARIN SOD 30 MG/0.3 ML SYRINGE SC SCH (10:02)
[2018-03-20] MEDS: CARVEDILOL 3.125 MG TAB PO SCH ×2 (10:02→22:09)
[2018-03-20 13:00] VITALS: BP 108/67
[2018-03-20] MEDS ORDERED: LORazepam 2MG/ML-1ML VIAL IV PRN (13:00)
[2018-03-20] MEDS ORDERED: DIAZEPAM 5 MG TAB PO PRN (13:00)
[2018-03-20 17:00] VITALS: BP 110/65
[2018-03-20] MEDS: BOOST 8 ounces PO SCH (18:14)
[2018-03-20 21:31] VITALS: BP 102/58
[2018-03-20] MEDS: ATORVASTATIN 20 MG TAB PO SCH (22:06)
[2018-03-20] MEDS: cefTRIAXone 1GM/10ml IVPUSH 10 ML IV SCH (23:42)
[2018-03-20] MEDS: LORazepam 2MG/ML-1ML VIAL IV PRN (23:54)
[2018-03-21] MEDS: IPRATROPIUM BROM 0.5 MG/2.5ML INH SOL NEB SCH ×3 (00:15→11:36)
[2018-03-21] MEDS: ALBUTEROL SULF 2.5 MG/0.5ML(0.5%) NEB SOLN NEB SCH ×3 (00:15→11:36)
[2018-03-21] MEDS: DOXYCYCLINE 100MG/250ML 250 ML IV SCH (01:05)
[2018-03-21 05:43] VITALS: BP 108/74
[2018-03-21 09:00] VITALS: BP 107/76
[2018-03-21] MEDS: busPIRone HCL 10 MG TAB PO SCH (09:43)
[2018-03-21] MEDS: CARVEDILOL 3.125 MG TAB PO SCH (09:43)
[2018-03-21] MEDS: ENOXAPARIN SOD 30 MG/0.3 ML SYRINGE SC SCH (09:44)
[2018-03-21] MEDS: BOOST 8 ounces PO SCH (09:46)
[2018-03-21] MEDS ORDERED: guaiFENesin 200 MG/10 ML UD GT PRN (12:30)
[2018-03-21] MEDS ORDERED: MULTIPLE VITAMIN TAB PO SCH (16:00)
[2018-03-21 17:00] VITALS: BP 108/66
[2018-03-21] MEDS ORDERED: ASCORBIC ACID 500 MG TAB PO SCH (22:00)
[2018-03-25] MEDS ORDERED: GLIP-115 PO (11:49)
[2018-03-25] MEDS ORDERED: CEL100T PO (11:51)
[2018-03-29] MEDS ORDERED: FURO20TA PO (12:13)
== END 2018-03-21 18:00 | disposition hospice, home (50) | DRG 190 ==
LOC: ER 16:37 → OVERFLOW 16:38 → CENTRAL 03-19 00:55
PROVIDERS: ADMIT Internal Medicine; ATTEND Internal Medicine
DX: J44.0 Chronic obstructive pulmonary disease with (acute) lower respiratory infection (principal); N17.0 Acute kidney failure with tubular necrosis; J96.10 Chronic respiratory failure, unspecified whether with hypoxia or hypercapnia; E44.0 Moderate protein-calorie malnutrition; J44.1 Chronic obstructive pulmonary disease with (acute) exacerbation; J20.9 Acute bronchitis, unspecified; R53.1 Weakness; D63.8 Anemia in other chronic diseases classified elsewhere; F41.9 Anxiety disorder, unspecified; E78.5 Hyperlipidemia, unspecified; F10.20 Alcohol dependence, uncomplicated; G89.29 Other chronic pain; I11.0 Hypertensive heart disease with heart failure; I48.91 Unspecified atrial fibrillation; I50.9 Heart failure, unspecified; K59.00 Constipation, unspecified; Z53.29 Procedure and treatment not carried out because of patient's decision for other reasons; Z74.01 Bed confinement status; M48.061 Spinal stenosis, lumbar region without neurogenic claudication; M51.36 Other intervertebral disc degeneration, lumbar region; Z79.01 Long term (current) use of anticoagulants; Z79.899 Other long term (current) drug therapy; Z81.8 Family history of other mental and behavioral disorders; Z82.3 Family history of stroke; Z82.49 Family history of ischemic heart disease and other diseases of the circulatory system; Z82.5 Family history of asthma and other chronic lower respiratory diseases; Z82.62 Family history of osteoporosis; Z99.81 Dependence on supplemental oxygen; I25.2 Old myocardial infarction
CPT/HCPCS: 36415; 71045; 72131; 74018; 80048; 80053; 81001; 83605; 83880; 84443; 84484; 85007; 85027; 87040; 87081; 87086; 93005; 94640; 96372; 96374; 96375; 97163; 99291; J3490